=== PATIENT | female | born 1995 | race Caucasian/White ===

== ENCOUNTER 2019-03-10 11:10 | Emergency (ER) | payer OTHER ==
[~2019-03-10] VITALS: Ht 154.9 cm; Wt 56.1 kg
[2019-03-10] MEDS ORDERED: GABA-532 PO (12:11)
[2019-03-10 12:22] VITALS: BP 132/76
== END 2019-03-10 12:24 | disposition home or self-care (01) ==
LOC: ER 11:10
DX: F10.20 Alcohol dependence, uncomplicated (principal); F12.90 Cannabis use, unspecified, uncomplicated; Z88.0 Allergy status to penicillin; Y90.9 Presence of alcohol in blood, level not specified
CPT/HCPCS: 99283

== ENCOUNTER 2019-07-02 09:09 | Emergency (ER) | payer MEDICAID ==
[~2019-07-02] VITALS: Ht 154.9 cm; Wt 54.5 kg
[~2019-07-02 09:09] MED LIST: GABA-532 PO
[2019-07-02 09:17] VITALS: BP 150/85
[2019-07-02] MEDS ORDERED: GABA-532 PO (09:26)
== END 2019-07-02 09:34 | disposition home or self-care (01) ==
LOC: ER 09:09
DX: F10.239 Alcohol dependence with withdrawal, unspecified (principal); F17.200 Nicotine dependence, unspecified, uncomplicated; F12.90 Cannabis use, unspecified, uncomplicated; Z88.0 Allergy status to penicillin; Z79.899 Other long term (current) drug therapy; Y90.9 Presence of alcohol in blood, level not specified
CPT/HCPCS: 99283

== ENCOUNTER 2021-01-24 17:07 | Emergency (ER) | payer MEDICAID ==
[~2021-01-24] VITALS: Ht 154.9 cm; Wt 61.4 kg
[2021-01-24 17:27] VITALS: BP 129/80
[2021-01-24 18:30] LABS: BASOPHILS % (AUTO) 0.1 % (0-1); EOSINOPHILS % (AUTO) 0 % (0-6); HEMATOCRIT 39.2 % (35.0-45.0); HEMOGLOBIN 13.7 g/dl (12.0-16.0); LYMPHOCYTES # (AUTO) 0.6 X10'3 (1.1-4.8); LYMPHOCYTES % (AUTO) 3.9 % (21-51); MEAN CORPUSCULAR HEMOGLOBIN 30.4 PG (27.0-31.0); MEAN CORPUSCULAR VOLUME 87.1 FL (78-98); MEAN PLATELET VOLUME 8.3 FL (7.4-10.4); MONOCYTES # (AUTO) 0.5 X10'3 (0-0.9); MONOCYTES % (AUTO) 3.3 % (2-12); NEUTROPHILS # (AUTO) 15.3 X10'3 (1.8-7.7); NEUTROPHILS % (AUTO) 92.7 % (42-75); PLATELET COUNT 280 X10'3 (140-440); RED BLOOD COUNT 4.51 X10'6 (4.20-5.60); RED CELL DISTRIBUTION WIDTH 12.5 % (11.5-14.5); WHITE BLOOD COUNT 16.5 X10'3 (4.5-11.0)
[2021-01-24 18:46] LABS: ALANINE AMINOTRANSFERASE 25 U/L (12-78); ALBUMIN 4.8 G/DL (3.4-5.0); ALBUMIN/GLOBULIN RATIO 1.3 (1.1-1.5); ALKALINE PHOSPHATASE 67 IU/L (46-116); ANION GAP 17 (8-16); ASPARTATE AMINO TRANSFERASE 21 U/L (10-37); BILIRUBIN,TOTAL 2.5 MG/DL (0.1-1.0); BLOOD UREA NITROGEN 15 MG/DL (7-18); BUN/CREATININE RATIO 12.7 (6.6-38.0); CHLORIDE 105 MMOL/L (99-107); CREATININE 1.18 MG/DL (0.40-0.90); GLUCOSE 130 MG/DL (70-104); LIPASE 61 U/L (73-393); POTASSIUM 3.5 MMOL/L (3.5-5.1); SODIUM 142 MMOL/L (135-145); TOTAL CARBON DIOXIDE 19.9 MMOL/L (24-32); TOTAL PROTEIN 8.4 G/DL (6.4-8.2); eGFR 57 ML/MIN
[2021-01-24] MEDS ORDERED: ondansetron/PF 4mg/2ml inj IV ONE ×2 (19:05→20:20)
[2021-01-24] MEDS ORDERED: normal saline 1000ml 1,000 ML IV ONE (19:05)
[2021-01-24] MEDS ORDERED: diphenhydrAMINE 50 mg/ml inj IV ONE ×2 (19:15→21:05)
[2021-01-24 20:00] LABS: CLARITY,URINE CLEAR (Clear); GLUCOSE, URINE NEGATIVE (Neg); KETONES,URINE >=80 mg/dl (Neg); LEUKOCYTE ESTERASE ,URINE NEGATIVE (Neg); NITRITES, URINE NEGATIVE (Neg); OCCULT BLOOD,URINE NEGATIVE (Neg); PH,URINE 8.5 (4.8-8.0); PROTEIN,URINE 100 mg/dl (Neg)
[2021-01-24 20:01] LABS: COLOR,URINE DARK YELLOW (Yellow); UA COLLECTION TYPE CLN CATCH MIDSTREAM
[2021-01-24 20:03] LABS: URINE HCG NEGATIVE (NEG)
[2021-01-24] MEDS ORDERED: gabapentin 400mg capsule PO STA (20:19)
[2021-01-24] MEDS ORDERED: mag hydrox/Alum hydrox/simeth 30ml oral suspension PO ONE (20:20)
[2021-01-24] MEDS ORDERED: LIDOcaine Viscous 15ml cup MM ONE (20:20)
[2021-01-24] MEDS ORDERED: pantoprazole 40 MG vial IV ONE (20:20)
[2021-01-24 20:23] LABS: BACTERIA,URINE 2+ /HPF (Neg); MUCUS STRANDS MANY /LPF (Neg); RBC,URINE NONE SEEN /HPF (0-2); SQUAMOUS EPITHELIAL CELL,UR MANY /LPF (FEW); WBC,URINE 0-4 /HPF (0-4)
[2021-01-24] MEDS ORDERED: haloperidol lactate 5mg/ml inj IM ONE (21:05)
[2021-01-24] MEDS ORDERED: ONDA4TAB12 PO (22:06)
[2021-01-24] MEDS ORDERED: GABA-534 PO (22:06)
== END 2021-01-24 22:27 | disposition home or self-care (01) ==
LOC: ER 17:08
DX: K29.20 Alcoholic gastritis without bleeding (principal); R11.2 Nausea with vomiting, unspecified; F12.90 Cannabis use, unspecified, uncomplicated; Z88.0 Allergy status to penicillin; Z72.89 Other problems related to lifestyle; Z79.899 Other long term (current) drug therapy
CPT/HCPCS: 36415; 80053; 81001; 81025; 83690; 85025; 96361; 96372; 96374; 96375; 96376; 99284; C9113; J1200; J1630; J2405; J7030

== ENCOUNTER 2021-02-20 16:47 | Emergency (ER) | payer MEDICAID ==
[~2021-02-20 16:47] MED LIST changes: +GABA-534 PO; +ONDA4TAB12 PO
== END 2021-02-20 17:16 | disposition left against medical advice (07) ==
LOC: ER 16:49
DX: R11.10 Vomiting, unspecified (principal); Z53.21 Procedure and treatment not carried out due to patient leaving prior to being seen by health care provider

== ENCOUNTER 2021-02-22 15:02 | Emergency (ER) | payer MEDICAID ==
[~2021-02-22] VITALS: Ht 154.9 cm; Wt 57.7 kg
[2021-02-22] MEDS ORDERED: ondansetron/PF 4mg/2ml inj IV ONE (18:25)
[2021-02-22] MEDS ORDERED: normal saline 1000ml 1,000 ML IV ONE ×2 (18:25)
[2021-02-22] MEDS ORDERED: proCHLORperazine 10 MG/2 ml inj IV ONE (18:25)
[2021-02-22] MEDS ORDERED: diphenhydrAMINE 50 mg/ml inj IV ONE (18:25)
[2021-02-22] MEDS ORDERED: pantoprazole 40 MG vial IV ONE (18:25)
[2021-02-22 18:38] LABS: BASOPHILS % (AUTO) 0.2 % (0-1); EOSINOPHILS % (AUTO) 0.1 % (0-6); HEMOGLOBIN 14.1 g/dl (12.0-16.0); LYMPHOCYTES # (AUTO) 1.3 X10'3 (1.1-4.8); LYMPHOCYTES % (AUTO) 16.8 % (21-51); MEAN CORPUSCULAR HEMOGLOBIN 31.1 PG (27.0-31.0); MEAN CORPUSCULAR HGB CONC 35.3 g/dL (33.0-36.5); MEAN PLATELET VOLUME 7.7 FL (7.4-10.4); MONOCYTES # (AUTO) 0.5 X10'3 (0-0.9); NEUTROPHILS # (AUTO) 5.7 X10'3 (1.8-7.7); NEUTROPHILS % (AUTO) 75.9 % (42-75); PLATELET COUNT 255 X10'3 (140-440); RED BLOOD COUNT 4.54 X10'6 (4.20-5.60); RED CELL DISTRIBUTION WIDTH 12.6 % (11.5-14.5); WHITE BLOOD COUNT 7.5 X10'3 (4.5-11.0)
[2021-02-22 18:56] LABS: ALANINE AMINOTRANSFERASE 17 U/L (12-78); ALBUMIN 4.5 G/DL (3.4-5.0); ALBUMIN/GLOBULIN RATIO 1.4 (1.1-1.5); ALKALINE PHOSPHATASE 55 IU/L (46-116); ANION GAP 16 (8-16); ASPARTATE AMINO TRANSFERASE 19 U/L (10-37); BILIRUBIN,TOTAL 2.4 MG/DL (0.1-1.0); BLOOD UREA NITROGEN 17 MG/DL (7-18); BUN/CREATININE RATIO 15.6 (6.6-38.0); CALCIUM 9.7 MG/DL (8.5-10.1); CHLORIDE 100 MMOL/L (99-107); CREATININE 1.09 MG/DL (0.40-0.90); GLUCOSE 80 MG/DL (70-104); LIPASE 156 U/L (73-393); POTASSIUM 3.6 MMOL/L (3.5-5.1); SODIUM 138 MMOL/L (135-145); TOTAL PROTEIN 7.8 G/DL (6.4-8.2); eGFR 62 ML/MIN
--- NOTE | 2021-02-22 20:45 | NUR ---
ULTRASOUND AT BEDSIDE
[2021-02-22] MEDS ORDERED: PANT20TA18 PO (20:53)
[2021-02-22] MEDS: ondansetron/PF 4mg/2ml inj IV ONE ×2 (20:53→21:00)
[2021-02-22] MEDS ORDERED: PROC25SU31 RC (20:53)
[2021-02-22] MEDS ORDERED: proCHLORperazine 10 MG/2 ml inj IV PRN (20:55)
[2021-02-22 20:57] LABS: CLARITY,URINE CLEAR (Clear); COLOR,URINE YELLOW (Yellow); GLUCOSE, URINE NEGATIVE (Neg); KETONES,URINE >=80 mg/dl (Neg); LEUKOCYTE ESTERASE ,URINE NEGATIVE (Neg); NITRITES, URINE NEGATIVE (Neg); OCCULT BLOOD,URINE SMALL (Neg); PROTEIN,URINE NEGATIVE (Neg)
[2021-02-22 21:00] LABS: UA COLLECTION TYPE CLN CATCH MIDSTREAM
[2021-02-22 21:04] LABS: URINE HCG NEGATIVE (NEG)
[2021-02-22 21:09] LABS: BACTERIA,URINE FEW /HPF (Neg); MUCUS STRANDS MODERATE /LPF (Neg); RBC,URINE 0-2 /HPF (0-2); SQUAMOUS EPITHELIAL CELL,UR MANY /LPF (FEW); WBC,URINE 0-4 /HPF (0-4)
[2021-02-22 21:16] VITALS: BP 120/79
== END 2021-02-22 21:18 | disposition home or self-care (01) ==
LOC: ER 15:03
DX: R11.2 Nausea with vomiting, unspecified (principal); R10.84 Generalized abdominal pain; F12.90 Cannabis use, unspecified, uncomplicated; Z88.8 Allergy status to other drugs, medicaments and biological substances; Z79.899 Other long term (current) drug therapy; Z72.89 Other problems related to lifestyle
CPT/HCPCS: 36415; 76700; 80053; 81001; 81025; 83690; 85025; 96361; 96374; 96375; 96376; 99285; C9113; J0780; J1200; J2405; J7030

== ENCOUNTER 2021-05-03 21:09 | Emergency (ER) | payer MEDICAID ==
[~2021-05-03] VITALS: Ht 154.9 cm; Wt 59.3 kg
[~2021-05-03 21:09] MED LIST changes: +PANT20TA18 PO
[2021-05-03 21:17] VITALS: BP 142/102
[2021-05-03 22:02] LABS: URINE HCG NEGATIVE (NEG)
[2021-05-03 22:22] LABS: CLARITY,URINE CLOUDY (Clear); COLOR,URINE YELLOW (Yellow); GLUCOSE, URINE NEGATIVE (Neg); KETONES,URINE 15 mg/dl (Neg); LEUKOCYTE ESTERASE ,URINE SMALL (Neg); NITRITES, URINE NEGATIVE (Neg); OCCULT BLOOD,URINE MODERATE (Neg); PROTEIN,URINE 30 mg/dl (Neg)
[2021-05-03 22:32] LABS: UA COLLECTION TYPE CLN CATCH MIDSTREAM
[2021-05-03 22:35] LABS: WBC,URINE 20-30 /HPF (0-4)
[2021-05-03 22:36] LABS: BACTERIA,URINE 1+ /HPF (Neg); MUCUS STRANDS MODERATE /LPF (Neg); SQUAMOUS EPITHELIAL CELL,UR MANY /LPF (FEW)
[2021-05-03 22:37] LABS: TRANSITIONAL EPI CELLS,URINE FEW /HPF
[2021-05-03] MEDS ORDERED: ondansetron/PF 4mg/2ml inj IV ONE (22:40)
[2021-05-03] MEDS ORDERED: normal saline 1000ML IV soln IVB ONE (22:40)
[2021-05-03 23:28] LABS: ALANINE AMINOTRANSFERASE 18 U/L (12-78); ALBUMIN/GLOBULIN RATIO 1.3 (1.1-1.5); ALKALINE PHOSPHATASE 51 IU/L (46-116); ANION GAP 19 (8-16); ASPARTATE AMINO TRANSFERASE 13 U/L (10-37); BILIRUBIN,TOTAL 1.2 MG/DL (0.1-1.0); BLOOD UREA NITROGEN 10 MG/DL (7-18); BUN/CREATININE RATIO 8.1 (6.6-38.0); CALCIUM 8.5 MG/DL (8.5-10.1); CHLORIDE 109 MMOL/L (99-107); CREATININE 1.24 MG/DL (0.40-0.90); GLUCOSE 120 MG/DL (70-104); LIPASE 54 U/L (73-393); POTASSIUM 3.4 MMOL/L (3.5-5.1); SODIUM 145 MMOL/L (135-145); TOTAL CARBON DIOXIDE 17.3 MMOL/L (24-32); TOTAL PROTEIN 7.1 G/DL (6.4-8.2); eGFR 53 ML/MIN
[2021-05-03 23:29] LABS: BASOPHILS % (AUTO) 0 % (0-1); EOSINOPHILS % (AUTO) 0 % (0-6); HEMOGLOBIN 12.4 g/dl (12.0-16.0); LYMPHOCYTES # (AUTO) 0.4 X10'3 (1.1-4.8); LYMPHOCYTES % (AUTO) 3.3 % (21-51); MEAN CORPUSCULAR HEMOGLOBIN 31.4 PG (27.0-31.0); MEAN CORPUSCULAR HGB CONC 35.5 g/dL (33.0-36.5); MEAN CORPUSCULAR VOLUME 88.7 FL (78-98); MEAN PLATELET VOLUME 7.9 FL (7.4-10.4); MONOCYTES # (AUTO) 0.3 X10'3 (0-0.9); MONOCYTES % (AUTO) 2.2 % (2-12); NEUTROPHILS # (AUTO) 11.4 X10'3 (1.8-7.7); NEUTROPHILS % (AUTO) 94.5 % (42-75); PLATELET COUNT 236 X10'3 (140-440); RED BLOOD COUNT 3.95 X10'6 (4.20-5.60); WHITE BLOOD COUNT 12.1 X10'3 (4.5-11.0)
[2021-05-04] MEDS ORDERED: proCHLORperazine 10 MG/2 ml inj IV ONE (00:05)
[2021-05-04] MEDS ORDERED: PROC-8 PO (01:16)
[2021-05-04] MEDS ORDERED: PANT-47 PO (01:16)
== END 2021-05-04 01:44 | disposition home or self-care (01) ==
LOC: ER 21:10
DX: R11.2 Nausea with vomiting, unspecified (principal); R07.89 Other chest pain; R10.13 Epigastric pain; F17.200 Nicotine dependence, unspecified, uncomplicated; F12.90 Cannabis use, unspecified, uncomplicated; Z72.89 Other problems related to lifestyle; Z88.0 Allergy status to penicillin; Z88.1 Allergy status to other antibiotic agents; Z79.899 Other long term (current) drug therapy
CPT/HCPCS: 36415; 80053; 81001; 81025; 83690; 85025; 96361; 96374; 96375; 99284; J0780; J2405; J7030

== ENCOUNTER 2021-05-08 11:18 | Emergency (ER) | payer MEDICAID ==
[~2021-05-08] VITALS: Ht 154.9 cm; Wt 54.8 kg
[~2021-05-08 11:18] MED LIST changes: +PANT-47 PO; +PROC-8 PO
[2021-05-08 11:36] VITALS: BP 122/83
== END 2021-05-08 15:30 | disposition left against medical advice (07) ==
LOC: ER 11:18
DX: R11.10 Vomiting, unspecified (principal); Z53.21 Procedure and treatment not carried out due to patient leaving prior to being seen by health care provider

== ENCOUNTER 2021-05-11 09:06 | Emergency (ER) | payer MEDICAID ==
[~2021-05-11] VITALS: Ht 154.9 cm; Wt 56.0 kg
[2021-05-11 09:07] VITALS: BP 119/87
[2021-05-11] MEDS ORDERED: ondansetron/PF 4mg/2ml inj IV ONE (10:55)
[2021-05-11] MEDS ORDERED: normal saline 1000ML IV soln IVB ONE (10:55)
[2021-05-11 11:41] LABS: ALANINE AMINOTRANSFERASE 17 U/L (12-78); ALBUMIN 4.5 G/DL (3.4-5.0); ALBUMIN/GLOBULIN RATIO 1.6 (1.1-1.5); ALKALINE PHOSPHATASE 48 IU/L (46-116); ANION GAP 17 (8-16); ASPARTATE AMINO TRANSFERASE 17 U/L (10-37); BILIRUBIN,TOTAL 2.3 MG/DL (0.1-1.0); BLOOD UREA NITROGEN 10 MG/DL (7-18); BUN/CREATININE RATIO 10.4 (6.6-38.0); CALCIUM 8.8 MG/DL (8.5-10.1); CHLORIDE 97 MMOL/L (99-107); CREATININE 0.96 MG/DL (0.40-0.90); GLUCOSE 73 MG/DL (70-104); LIPASE 291 U/L (73-393); POTASSIUM 3.5 MMOL/L (3.5-5.1); SODIUM 134 MMOL/L (135-145); TOTAL CARBON DIOXIDE 19.6 MMOL/L (24-32); TOTAL PROTEIN 7.3 G/DL (6.4-8.2); eGFR 71 ML/MIN
[2021-05-11 12:27] LABS: URINE HCG NEGATIVE (NEG)
[2021-05-11 12:31] LABS: BASOPHILS % (AUTO) 0.3 % (0-1); EOSINOPHILS % (AUTO) 0 % (0-6); HEMATOCRIT 35.4 % (35.0-45.0); HEMOGLOBIN 12.5 g/dl (12.0-16.0); LYMPHOCYTES # (AUTO) 1.2 X10'3 (1.1-4.8); LYMPHOCYTES % (AUTO) 20.1 % (21-51); MEAN CORPUSCULAR HEMOGLOBIN 31.3 PG (27.0-31.0); MEAN CORPUSCULAR HGB CONC 35.4 g/dL (33.0-36.5); MEAN CORPUSCULAR VOLUME 88.3 FL (78-98); MEAN PLATELET VOLUME 7.7 FL (7.4-10.4); MONOCYTES # (AUTO) 0.5 X10'3 (0-0.9); MONOCYTES % (AUTO) 8.8 % (2-12); NEUTROPHILS # (AUTO) 4.1 X10'3 (1.8-7.7); NEUTROPHILS % (AUTO) 70.8 % (42-75); PLATELET COUNT 211 X10'3 (140-440); WHITE BLOOD COUNT 5.8 X10'3 (4.5-11.0)
[2021-05-11 12:34] LABS: CLARITY,URINE CLEAR (Clear); COLOR,URINE STRAW (Yellow); GLUCOSE, URINE NEGATIVE (Neg); KETONES,URINE 40 mg/dl (Neg); LEUKOCYTE ESTERASE ,URINE NEGATIVE (Neg); NITRITES, URINE NEGATIVE (Neg); OCCULT BLOOD,URINE NEGATIVE (Neg); PROTEIN,URINE NEGATIVE (Neg); UROBILINOGEN,URINE 0.2 E.U/dL (0.2-1.0)
[2021-05-11 12:44] LABS: URINE AMPHETAMINE SCREEN NEGATIVE (Neg); URINE BARBITUATE SCREEN NEGATIVE (Neg); URINE BENZODIAZEPINES SCREEN NEGATIVE (Neg); URINE CANNABINOID SCREEN POSITIVE (Neg); URINE COCAINE SCREEN NEGATIVE (Neg); URINE METHADONE SCREEN NEGATIVE (Neg); URINE OPIATE SCREEN NEGATIVE (Neg); URINE PHENCYCLIDINE SCREEN NEGATIVE (Neg)
[2021-05-11 12:45] LABS: UA COLLECTION TYPE CLN CATCH MIDSTREAM
[2021-05-11] MEDS ORDERED: ONDA4TAB6 PO (13:08)
== END 2021-05-11 13:23 | disposition home or self-care (01) ==
LOC: ER 09:06
DX: R11.15 Cyclical vomiting syndrome unrelated to migraine (principal); R10.13 Epigastric pain; R10.11 Right upper quadrant pain; F12.90 Cannabis use, unspecified, uncomplicated; Z88.0 Allergy status to penicillin; Z88.1 Allergy status to other antibiotic agents; Z79.899 Other long term (current) drug therapy
CPT/HCPCS: 36415; 76700; 80053; 80305; 81003; 81025; 83690; 85025; 96361; 96374; 99284; J2405; J7030

== ENCOUNTER 2021-10-08 11:07 | Emergency (ER) | payer MEDICAID ==
[~2021-10-08] VITALS: Ht 154.9 cm; Wt 61.0 kg
[~2021-10-08 11:07] MED LIST changes: +ONDA4TAB6 PO
[2021-10-08 11:12] VITALS: BP 127/82
[2021-10-08 11:56] LABS: BASOPHILS % (AUTO) 0.1 % (0-1); EOSINOPHILS % (AUTO) 0 % (0-6); HEMOGLOBIN 14.6 g/dl (12.0-16.0); LYMPHOCYTES # (AUTO) 1.2 X10'3 (1.1-4.8); LYMPHOCYTES % (AUTO) 11.4 % (21-51); MONOCYTES # (AUTO) 0.6 X10'3 (0-0.9); MONOCYTES % (AUTO) 5.7 % (2-12); NEUTROPHILS # (AUTO) 8.7 X10'3 (1.8-7.7); NEUTROPHILS % (AUTO) 82.8 % (42-75)
[2021-10-08 12:14] LABS: ALANINE AMINOTRANSFERASE 26 U/L (12-78); ALBUMIN 5.1 G/DL (3.4-5.0); ALBUMIN/GLOBULIN RATIO 1.3 (1.1-1.5); ALKALINE PHOSPHATASE 71 IU/L (46-116); ANION GAP 18 (8-16); ASPARTATE AMINO TRANSFERASE 24 U/L (10-37); BILIRUBIN,TOTAL 2.4 MG/DL (0.1-1.0); BLOOD UREA NITROGEN 24 MG/DL (7-18); BUN/CREATININE RATIO 20.5 (6.6-38.0); CHLORIDE 97 MMOL/L (99-107); CREATININE 1.17 MG/DL (0.40-0.90); GLUCOSE 109 MG/DL (70-104); POTASSIUM 3.2 MMOL/L (3.5-5.1); SODIUM 138 MMOL/L (135-145); TOTAL CARBON DIOXIDE 22.7 MMOL/L (24-32); eGFR 57 ML/MIN
[2021-10-08 12:18] LABS: CLARITY,URINE SLIGHTLY CLOUDY (Clear); COLOR,URINE YELLOW (Yellow); GLUCOSE, URINE NEGATIVE (Neg); KETONES,URINE 40 mg/dl (Neg); LEUKOCYTE ESTERASE ,URINE NEGATIVE (Neg); NITRITES, URINE NEGATIVE (Neg); OCCULT BLOOD,URINE TRACE-LYSED (Neg); PH,URINE 5.5 (4.8-8.0); PROTEIN,URINE 100 mg/dl (Neg); UROBILINOGEN,URINE 0.2 E.U/dL (0.2-1.0)
[2021-10-08 12:19] LABS: URINE HCG NEGATIVE (NEG)
[2021-10-08 12:24] LABS: ETHANOL < 0.010 GM/DL (0.0-0.010)
[2021-10-08 12:25] LABS: UA COLLECTION TYPE CLN CATCH MIDSTREAM
[2021-10-08 12:29] LABS: AMORPHOUS URATES 2+; BACTERIA,URINE FEW /HPF (Neg); MUCUS STRANDS FEW /LPF (Neg); RBC,URINE 0-2 /HPF (0-2); SQUAMOUS EPITHELIAL CELL,UR MANY /LPF (FEW)
[2021-10-08 12:30] LABS: URINE AMPHETAMINE SCREEN NEGATIVE (Neg); URINE BARBITUATE SCREEN NEGATIVE (Neg); URINE BENZODIAZEPINES SCREEN NEGATIVE (Neg); URINE CANNABINOID SCREEN POSITIVE (Neg); URINE COCAINE SCREEN NEGATIVE (Neg); URINE METHADONE SCREEN NEGATIVE (Neg); URINE OPIATE SCREEN NEGATIVE (Neg); URINE PHENCYCLIDINE SCREEN NEGATIVE (Neg)
--- NOTE | 2021-10-08 12:30 | NUR ---
Urine rejected for cultures @1230 per lab. -MR, EMT
[2021-10-08 12:44] LABS: MEAN CORPUSCULAR HEMOGLOBIN 32.1 PG (27.0-31.0); MEAN CORPUSCULAR HGB CONC 35.5 g/dL (33.0-36.5); MEAN CORPUSCULAR VOLUME 90.3 FL (78-98); PLATELET COUNT 288 X10'3 (140-440); RED BLOOD COUNT 4.54 X10'6 (4.20-5.60); RED CELL DISTRIBUTION WIDTH 12.8 % (11.5-14.5)
[2021-10-08 12:45] LABS: MEAN PLATELET VOLUME 7.7 FL (7.4-10.4)
== END 2021-10-08 15:22 | disposition left against medical advice (07) ==
LOC: ER 11:08
DX: R11.2 Nausea with vomiting, unspecified (principal); Z53.21 Procedure and treatment not carried out due to patient leaving prior to being seen by health care provider
CPT/HCPCS: 36415; 80053; 80305; 80320; 81001; 81025; 84443; 85025

== ENCOUNTER 2021-10-11 08:47 | Emergency (ER) | payer MEDICAID ==
[~2021-10-11] VITALS: Ht 154.9 cm; Wt 60.0 kg
[2021-10-11] MEDS ORDERED: normal saline 1000ML IV soln IV ONE (08:55)
[2021-10-11] MEDS ORDERED: haloperidol lactate 5mg/ml inj IM ONE (08:55)
[2021-10-11] MEDS ORDERED: LORazepam 2 mg/ml vial IV ONE (08:55)
[2021-10-11 09:46] LABS: ALANINE AMINOTRANSFERASE 17 U/L (12-78); ALBUMIN 4.7 G/DL (3.4-5.0); ALKALINE PHOSPHATASE 66 IU/L (46-116); ANION GAP 19 (8-16); ASPARTATE AMINO TRANSFERASE 20 U/L (10-37); BLOOD UREA NITROGEN 24 MG/DL (7-18); BUN/CREATININE RATIO 21.1 (6.6-38.0); CHLORIDE 95 MMOL/L (99-107); CREATINE KINASE 71 U/L (26-192); CREATININE 1.14 MG/DL (0.40-0.90); GLUCOSE 109 MG/DL (70-104); MAGNESIUM 2.2 MG/DL (1.5-2.4); POTASSIUM 3.2 MMOL/L (3.5-5.1); SODIUM 132 MMOL/L (135-145); TOTAL CARBON DIOXIDE 17.7 MMOL/L (24-32); eGFR 59 ML/MIN
[2021-10-11 09:55] LABS: ALBUMIN/GLOBULIN RATIO 1.3 (1.1-1.5); TOTAL PROTEIN 8.3 G/DL (6.4-8.2)
[2021-10-11] MEDS ORDERED: potassium Cl 20 mEq SR tablet PO STA (10:14)
[2021-10-11] MEDS ORDERED: potassium Cl 10 mEq/100mL bag IV ONE (10:15)
[2021-10-11 10:20] LABS: BASOPHILS % (AUTO) 0.4 % (0-1); EOSINOPHILS % (AUTO) 0.3 % (0-6); HEMATOCRIT 42.5 % (35.0-45.0); HEMOGLOBIN 15.2 g/dl (12.0-16.0); MEAN CORPUSCULAR HGB CONC 35.8 g/dL (33.0-36.5); MEAN CORPUSCULAR VOLUME 86.5 FL (78-98); MEAN PLATELET VOLUME 8.1 FL (7.4-10.4); MONOCYTES # (AUTO) 0.8 X10'3 (0-0.9); MONOCYTES % (AUTO) 9.6 % (2-12); NEUTROPHILS # (AUTO) 5.1 X10'3 (1.8-7.7); NEUTROPHILS % (AUTO) 64.7 % (42-75); PLATELET COUNT 281 X10'3 (140-440); RED BLOOD COUNT 4.92 X10'6 (4.20-5.60); RED CELL DISTRIBUTION WIDTH 12.8 % (11.5-14.5); WHITE BLOOD COUNT 7.9 X10'3 (4.5-11.0)
[2021-10-11 10:24] LABS: PLATELET ESTIMATE NORMAL; SPHEROCYTES 1+
[2021-10-11 10:27] VITALS: BP 139/97
== END 2021-10-11 10:30 | disposition home or self-care (01) ==
LOC: ER 08:48
DX: F12.188 Cannabis abuse with other cannabis-induced disorder (principal); R11.15 Cyclical vomiting syndrome unrelated to migraine; E87.6 Hypokalemia; E86.0 Dehydration; R11.2 Nausea with vomiting, unspecified; R10.84 Generalized abdominal pain; R00.0 Tachycardia, unspecified; Z72.89 Other problems related to lifestyle; Z88.0 Allergy status to penicillin; Z88.1 Allergy status to other antibiotic agents; Z79.899 Other long term (current) drug therapy
CPT/HCPCS: 36415; 80053; 82550; 83735; 85008; 85025; 93005; 96372; 96374; 99284; J1630; J2060; J7030

== ENCOUNTER 2021-10-12 18:10 | Emergency (ER) | payer MEDICAID | END 2021-10-12 20:22 | disposition left against medical advice (07) | LOC: ER 18:11 | DX: Z00.8 Encounter for other general examination (principal); Z53.21 Procedure and treatment not carried out due to patient leaving prior to being seen by health care provider ==

== ENCOUNTER 2022-06-04 15:17 | Emergency (ER) | payer MEDICAID ==
[~2022-06-04] VITALS: Ht 154.9 cm; Wt 68.2 kg
[2022-06-04 15:48] VITALS: BP 134/92
[2022-06-04] MEDS ORDERED: normal saline 1000ML IV soln IVB ONE (15:50)
[2022-06-04] MEDS ORDERED: LORazepam 2 mg/ml vial IV ONE (15:50)
[2022-06-04] MEDS ORDERED: haloperidol lactate 5mg/ml inj IM ONE (15:50)
[2022-06-04 16:23] LABS: BASOPHILS % (AUTO) 0.4 % (0-1); EOSINOPHILS % (AUTO) 0 % (0-6); HEMATOCRIT 40.7 % (35.0-45.0); HEMOGLOBIN 14.3 g/dl (12.0-16.0); LYMPHOCYTES # (AUTO) 1.2 X10'3 (1.1-4.8); LYMPHOCYTES % (AUTO) 13.4 % (21-51); MEAN CORPUSCULAR HEMOGLOBIN 29.9 PG (27.0-31.0); MEAN CORPUSCULAR HGB CONC 35.1 g/dL (33.0-36.5); MEAN CORPUSCULAR VOLUME 85.2 FL (78-98); MEAN PLATELET VOLUME 8.4 FL (7.4-10.4); MONOCYTES # (AUTO) 0.3 X10'3 (0-0.9); MONOCYTES % (AUTO) 3.8 % (2-12); NEUTROPHILS # (AUTO) 7.3 X10'3 (1.8-7.7); NEUTROPHILS % (AUTO) 82.4 % (42-75); PLATELET COUNT 259 X10'3 (140-440); RED BLOOD COUNT 4.78 X10'6 (4.20-5.60); RED CELL DISTRIBUTION WIDTH 12.9 % (11.5-14.5); WHITE BLOOD COUNT 8.8 X10'3 (4.5-11.0)
[2022-06-04 16:50] LABS: ALANINE AMINOTRANSFERASE 20 U/L (12-78); ALBUMIN 4.9 G/DL (3.4-5.0); ALBUMIN/GLOBULIN RATIO 1.4 (1.1-1.5); ALKALINE PHOSPHATASE 68 IU/L (46-116); ANION GAP 20 (8-16); ASPARTATE AMINO TRANSFERASE 22 U/L (10-37); BLOOD UREA NITROGEN 12 MG/DL (7-18); BUN/CREATININE RATIO 10.6 (6.6-38.0); CHLORIDE 106 MMOL/L (99-107); CREATININE 1.13 MG/DL (0.40-0.90); GLUCOSE 176 MG/DL (70-104); POTASSIUM 3.7 MMOL/L (3.5-5.1); SODIUM 142 MMOL/L (135-145); TOTAL CARBON DIOXIDE 16.1 MMOL/L (24-32); TOTAL PROTEIN 8.5 G/DL (6.4-8.2); eGFR 59 ML/MIN
[2022-06-04 16:53] LABS: LIPASE 94 U/L (73-393)
[2022-06-04 17:10] LABS: BETA HCG,QUANTITATIVE < 1.0 mIU/ml
--- NOTE | 2022-06-04 19:26 | NUR ---
PT REMOVED OWN IV AND LEFT WO DC INST AND PAPERWORK.
== END 2022-06-04 19:28 | disposition home or self-care (01) ==
LOC: ER 15:19
DX: R11.15 Cyclical vomiting syndrome unrelated to migraine (principal); E87.2 Acidosis; F12.10 Cannabis abuse, uncomplicated; Z88.0 Allergy status to penicillin; Z88.8 Allergy status to other drugs, medicaments and biological substances; Z79.899 Other long term (current) drug therapy
CPT/HCPCS: 36415; 80053; 83690; 84702; 85025; 96361; 96372; 96374; 99284; J1630; J2060; J7030; 99283

== ENCOUNTER 2022-06-08 11:48 | Emergency (ER) | payer MEDICAID ==
[~2022-06-08] VITALS: Ht 154.9 cm; Wt 65.9 kg
[2022-06-08] MEDS ORDERED: normal saline 1000ml 1,000 ML IV ONE (18:20)
[2022-06-08] MEDS ORDERED: diphenhydrAMINE 50 mg/ml inj IV ONE (18:20)
[2022-06-08] MEDS ORDERED: proCHLORperazine 10 MG/2 ml inj IV ONE (18:20)
[2022-06-08] MEDS ORDERED: PROC10TA10 PO (19:25)
[2022-06-08 19:33] VITALS: BP 112/77
== END 2022-06-08 19:43 | disposition home or self-care (01) ==
LOC: ER 11:48
DX: F50.2 Bulimia nervosa (principal); F17.200 Nicotine dependence, unspecified, uncomplicated; F12.90 Cannabis use, unspecified, uncomplicated; Z88.0 Allergy status to penicillin; Z88.1 Allergy status to other antibiotic agents
CPT/HCPCS: 96361; 96374; 96375; 99284; J0780; J1200; J7030